=== PATIENT | male | born 1995 ===

== ENCOUNTER 2018-12-10 15:25 | Emergency (ER) | payer MEDICAID ==
[2018-12-10 17:16] VITALS: BP 143/63; PULSE 64; RESP 18; TEMP 98; O2SAT 99
--- NOTE | 2018-12-10 18:27 | ED PDOC ---
Arrival/HPI - General Chief Complaint: Abnormal Skin Integrity Time Seen by Provider: 12/10/18 17:18 Historian: Patient - History of Present Illness Narrative History of Present Illness (Text): 12/10/18 20:30 22-year-old male presents today with a one-week history of rash to the abdomen. Patient states he's taken some Benadryl at home without improvement. Patient states the rash started on the abdomen and has spread from the abdomen to the chest and he has now developed a few spots on the left antecubital area as well as to spots that has started on the anterior thighs. Patient denies new soaps lotions detergents or colognes. Patient denies trauma or injury. No fevers or chills. No chest pain or shortness of breath. No abdominal pain. No one else with similar symptoms. No other complaints. Past Medical History - Provider Review Nursing Documentation Reviewed: Yes - Travel History Have you recently traveled outside [place] w/in the past 3 mons?: No - Psychiatric Hx Substance Use: No Family/Social History - Physician Review Nursing Documentation Reviewed: Yes Family/Social History: Unknown Family HX Smoking Status: Never Smoked Hx Alcohol Use: No Hx Substance Use: No Allergies/Home Meds Allergies/Adverse Reactions: Allergies No Known Allergies Allergy (Verified 12/10/18 17:11) Review of Systems - Review of Systems Constitutional: absent: Fatigue, Fevers Respiratory: absent: SOB, Cough Cardiovascular: absent: Chest Pain, Palpitations Gastrointestinal: absent: Abdominal Pain, Nausea, Vomiting Genitourinary Male: absent: Dysuria, Frequency Musculoskeletal: absent: Arthralgias, Back Pain, Neck Pain Skin: Rash, Pruritis Neurological: absent: Headache, Dizziness Psychiatric: absent: Anxiety, Depression, Suicidal Ideation Physical Exam Vital Signs Reviewed: Yes Vital Signs Temp Pulse Resp BP Pulse Ox 12/10/18 16:40 98 F 64 18 143/63 99 Temperature: Afebrile Blood Pressure: Normal Pulse: Regular Respiratory Rate: Normal Appearance: Positive for: Well-Appearing, Non-Toxic, Comfortable Pain Distress: None Mental Status: Positive for: Alert and Oriented X 3 - Systems Exam Head: Present: Atraumatic Mouth: Present: Moist Mucous Membranes Pharnyx: Present: Normal. No: ERYTHEMA, EXUDATE, Peritonsilar Swelling, Uvular Deviation Neck: Present: Normal Range of Motion Respiratory/Chest: Present: Clear to Auscultation, Good Air Exchange. No: Respiratory Distress, Accessory Muscle Use Cardiovascular: Present: Regular Rate and Rhythm, Normal S1, S2. No: Murmurs Abdomen: No: Tenderness, Distention, Rebound, Guarding Back: Present: Normal Inspection, Other (No rash on back.) Upper Extremity: Present: Normal ROM. No: Tenderness Lower Extremity: Present: Normal ROM Neurological: Present: GCS=15, Speech Normal Skin: Present: Warm, Dry, Rashes (There are multiple erythematous dry scaling plaques of varying sizes noted to the abdomen and lower chest. Nontender. No rash on the palms. ), Normal Color Psychiatric: Present: Alert, Oriented x 3 Medical Decision Making ED Course and Treatment: 12/10/18 20:33 Patient is nontoxic well-appearing in no distress with stable vital signs no angioedema. Lungs are clear to auscultation bilaterally there is no wheezing noted. The airway is patent benadry and prednisone given PO pt seen and evaluated by dr. cr. Patient with rash has a similar appearance to pityriasis but is scaly and could possibly represent psoriasis. I advised taking Benadryl every 6 hours as needed for itch as well as prednisone daily x4 days. Advised follow-up with the eeg tech within the next 2 days. Advised patient to follow up with primary care physician within the next 2 days and return if symptoms worsen persist or if new symptoms develop Patient verbalizes understanding of discharge instructions and need for immediate followup. all aspects of this case were discussed the attending of record. Impression :Rash Benadryl every 6 hours as needed for itch Prednisone once daily x4 days Pepcid one tablet daily Apply Lotion frequently Follow up with the primary care physician within the next 2 days. Follow up with the eeg tech within the next 2 days. Return if symptoms worsen persist or if new symptoms develop: Shortness of breath, feeling of throat closing, difficulty speaking or any other concerning symptoms develop - Medication Orders Current Medication Orders: Discontinued Medications Diphenhydramine HCl (Benadryl) 25 mg PO ONCE ONE Stop: 12/10/18 17:52 Last Admin: 12/10/18 18:06 Dose: 25 mg Famotidine (Pepcid) 20 mg PO STAT STA Stop: 12/10/18 17:52 Last Admin: 12/10/18 18:06 Dose: 20 mg Prednisone (Prednisone Tab) 60 mg PO STAT ONE Stop: 12/10/18 17:52 Last Admin: 12/10/18 18:07 Dose: 60 mg Disposition/Present on Arrival - Present on Arrival Any Indicators Present on Arrival: No History of DVT/PE: No History of Uncontrolled Diabetes: No Urinary Catheter: No History of Decub. Ulcer: No History Surgical Site Infection Following: None - Disposition Have Diagnosis and Disposition been Completed?: Yes Diagnosis: Rash Disposition: HOME/ ROUTINE Disposition Time: 18:00 Patient Plan: Discharge Patient Problems: Current Active Problems Problem Status Onset Rash Acute Condition: GOOD Discharge Instructions (ExitCare): Skin Rash (DC) Additional Instructions: Benadryl every 6 hours as needed for itch Prednisone once daily x4 days Pepcid one tablet daily Apply Lotion frequently Follow up with the primary care physician within the next 2 days. Follow up with the eeg tech within the next 2 days. Return if symptoms worsen persist or if new symptoms develop: Shortness of breath, feeling of throat closing, difficulty speaking or any other concerning symptoms develop Prescriptions: DiphenhydrAMINE [Benadryl] 25 mg PO Q6H #20 cap Famotidine [Pepcid] 20 mg PO DAILY #30 tab predniSONE [predniSONE Tab] 3 tab PO DAILY #12 tab Referrals: Kleber Elmore MD [Staff Provider] - Follow up with primary Edelmira Nielsen MD [Staff Provider] - Follow up with primary Khadijah Mckeon MD [Medical Doctor] - Follow up with primary [facility] [Outside] - Follow up with primary Forms: [employer] (Pashto), WORK NOTE
== END 2018-12-10 18:46 | disposition home or self-care (01) ==
LOC: ED 15:25
DX: R21 Rash and other nonspecific skin eruption (principal)